=== PATIENT | male | born 1980 | race Caucasian/White ===

== ENCOUNTER 2019-04-16 15:20 | Emergency (ER) | payer SELFPAY ==
[2019-04-16] VITALS (8 sets, daily range): BP systolic 101–114; BP diastolic 71–84; PULSE 84–130; RESP 14–18; TEMP 36.8–36.9; O2SAT 95–97; BMI 23.0
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
--- NOTE | 2019-04-16 16:21 | CM.ED ---
Social Work Collaborating with Dr. Perkins. Patient to be referred to crisis due to patient being self-pay. This social media analyst made referral to Crisis, Valarie. assistant secretary to notify crisis when patient is medically cleared, this social media analyst notified RN and ED legal administrative secretary. Nain Bob MSW, ELIZABETH
[2019-04-16 16:30] LABS: Absolute Neutrophil Count 3.8 X10^3/uL (2.0-7.7); Basophil# 0.02 X10^3/uL; Basophil% 0.3 % (0-1); Eosinophil# 0.08 X10^3/uL; Eosinophils% 1.3 % (0-5); Hemoglobin 15.7 g/dl (13.0-16.5); Lymphocyte % 26.4 % (19-41); Mean Corp Hgb Conc 34.1 g/gl (32-36); Mean Corpuscular Hgb 29.5 pg (27.0-32.0); Mean Corpuscular Volume 86.3 fL (80-94); Mean Platelet Vol. 9.4 fl (6.2-12.0); Monocyte# 0.59 X10^3/uL; Monocyte% 9.7 % (0-10); Neutrophil # 3.75 X10^3/uL (2.7-7.7); Platelet Count 268 K/mm3 (150-450); RBC Distribution Width CV 13.1 % (11.6-14.6); RBC Distribution Width SD 41.6 fl (35.1-43.9); Red Blood Count 5.33 M/mm3 (4.6-6.2); White Blood Count 6.1 K/mm3 (4.4-11.0)
[2019-04-16 16:31] LABS: POSITIVE COUNT NO; POSITIVE DIFFERENTIAL NO; POSITIVE MORPHOLOGY NO
--- NOTE | 2019-04-16 16:31 | ED.RN ---
PT REFUSING TO COOPERATE AND PROVIDE URINE SAMPLE. EXPLAINED TO PT THAT HE IS PINK SLIPPED AND MUST PROVIDE URINE SAMPLE. PT NOT COOPERATIVE. DR. SONIDO CHEN.
[2019-04-16 16:40] LABS: Anion Gap 6 (5-15); BUN 13 mg/dL (7-18); BUN/Creat Ratio 11.5 RATIO (10-20); Calcium,Total 9.7 mg/dL (8.5-10.1); Chloride 103 mmol/L (98-107); Creatinine, Serum 1.13 mg/dL (0.70-1.30); EST Glomerular Filtration Rate 77 mL/min (>60); Est Glom Filt Rate - Afr Amer 93 mL/min (>60); Estimated Creatinine Clearance 98.19 ml/min; Glucose 105 mg/dL (74-106); Potassium 4.3 mmol/L (3.5-5.1); Sodium Level 138 mmol/L (136-145)
[2019-04-16] MEDS: Ziprasidone IM 20 MG/ML VIAL IM (16:42)
--- NOTE | 2019-04-16 17:12 | ED.RN ---
PT REQUESTING HIS CELL PHONE. SEARCHED PT'S BELONGINGS WITH BEATRIZ SOMMER RN AND UNABLE TO LOCATE PHONE. PT MADE AWARE. 'S OFFICE CALLED AND THEY STATED THAT THEY DO NOT HAVE PHONE EITHER. PT MADE AWARE.
--- NOTE | 2019-04-16 17:52 | ED.RN ---
PER COUNSELING CENTER, EVITA IS EXECUTIVE TEAM LEADER AND IT WILL BE A WHILE, SHE IS IN [facility]
[2019-04-16 18:19] LABS: Amphetamine Urine VISTA POSITIVE (<1000 ng/mL); Barbiturate Urine VISTA NEGATIVE (< 200 ng/mL); Benzodiazepine Urine VISTA NEGATIVE (< 200 ng/mL); Cocaine Urine VISTA NEGATIVE (< 300 ng/mL); Ecstacy Urine VISTA NEGATIVE (< 500 ng/mL); Methadone Urine VISTA NEGATIVE (< 300 ng/mL); PCP Urine VISTA NEGATIVE (< 25 ng/mL); THC Urine VISTA POSITIVE (< 50 ng/mL); Vista UDS pH Range 5
[2019-04-17] VITALS (14 sets, daily range): BP systolic 107–135; BP diastolic 74–105; PULSE 82–96; RESP 12–22; TEMP 37; O2SAT 95–100
--- NOTE | 2019-04-17 06:07 | ED.RN ---
Addendum entered by Turner Wood 04/17/19 06:13: SECURITY IS ACTUALLY IN THE DEPARTMENT, NOT AT THE BEDSIDE JUST IN CASE WE NEED THEM. Original Note: PATIENT IS VERY AGITATED THIS TIME WHEN I WENT IN TO DO HIS VITALS. HE SAYS I AM NOT GOING TO ANY [facility] F[facility]ILITY. I AM GOING HOME. YOU ARE GOING TO HAVE A PROBLEM IF YOU TRY TO SEND ME. I TRIED TO EXPLAIN TO THE PATIENT THE PROCESS, BUT HE KEEPS SAYING. I DON'T WANT TO HEAR IT, EVERYONE IS TELLING ME SOMETHING DIFFERENT EVERY TIME THEY COME IN HERE. SECURITY CALLED AND IS AT THE BEDSIDE.
--- NOTE | 2019-04-17 08:17 | ED.RN ---
BREAKFAST TRAY DELIVERED TO PT. PT STATES I'M NOT EATING UNTIL I GET TO GO HOME. TRAY WAS LEFT IN ROOM FOR PT AND PT INFORMED TRAY ON COUNTER IN HE DECIDED TO EAT. PT STATES I WON'T CHANGE MY MIND. I'M NOT EATING UNTIL I GO HOME. PT INFORMED OF PINK SLIP AND PLAN FOR CARE INCLUDED TRANSFER TO MENTAL HEALTH FACILITY. WILL CONTINUE TO MONITOR. SITTER PRESENT IN ROOM, DOOR LEFT CRACKED OPEN FOR SAFETY. PT DENIES FURTHER NEEDS AT THIS TIME.
--- NOTE | 2019-04-17 08:40 | EKG12_ITS ---
Test Reason : [facility] [place] Pressure : / mmHG Vent. Rate : 065 BPM Atrial Rate : 065 BPM P-R Int : 144 ms QRS Dur : 086 ms QT Int : 404 ms P-R-T Axes : 021 079 060 degrees QTc Int : 420 ms Normal sinus rhythm Normal ECG Confirmed by JEMMA INFANTE, BERTRAND ([id number]), desk editor CADE SIMONS ([id number]) on 04/20/2019 2:09:09 PM Referred By: ADAM Confirmed By:BERTRAND EASTON MD
[2019-04-17] MEDS: DiphenhydrAMINE 50 MG/ML Syringe IM (09:14)
[2019-04-17] MEDS: Haloperidol Lactate 5 MG/ML Vial 10 MG IM (09:14)
[2019-04-17] MEDS: LORazepam 2 MG/ML Syringe 1 MG IM (09:14)
--- NOTE | 2019-04-17 09:35 | ED.RN ---
Pt became agitated at the need for an EKG prior to transfer. Verbal deescalation attempted for approximately 20 minutes. Pt complied with medication and ekg for nurse. He continues to state i'm not going anywhere. It's Bullshit.
--- NOTE | 2019-04-17 20:20 | ED.RN ---
[facility] called to notify of acceptance to their facility.
[2019-04-18] VITALS (7 sets, daily range): BP systolic 104; BP diastolic 72; PULSE 75; RESP 14–16; O2SAT 97
--- NOTE | 2019-04-18 08:39 | ED.RN ---
PT TRANSFERRED TO [facility] AND PT TRANSFERRED TO [facility]. PT VERY COOPERATIVE, CONTINUES TO STATE THAT HE DIDN'T NEED TO GO AND THAT HE DIDN'T BELONG.
== END 2019-04-18 08:42 ==
LOC: ED 15:50
PROVIDERS: Emergency Provider Emergency Medicine
DX: R45.851 Suicidal ideations (principal); F32.9 Major depressive disorder, single episode, unspecified; F99 Mental disorder, not otherwise specified
CPT/HCPCS: 80048; 80307; 80320; 85025; 93005; 96372; 99284; A4216; G0480; J3486

== ENCOUNTER → 2021-08-20 14:00 | Outpatient (CLI) | payer OTHER, SELFPAY | PROVIDERS: Referring Provider Internal Medicine Gastroenterology; Visit Provider Internal Medicine Gastroenterology | DX: K51.90 Ulcerative colitis, unspecified, without complications (principal) | CPT/HCPCS: 36415 ==